=== PATIENT | male | born 1995 | race Caucasian/White ===

== ENCOUNTER 2017-12-10 20:08 | Emergency (ER) | payer OTHER ==
--- NOTE | 2017-12-10 20:44 | ED Physician Documentation ---
PD HPI ABD PAIN - Stated complaint Stated Complaint: ABD PX - Chief complaint Chief Complaint: Abd Pain - History obtained from History obtained from: Patient - History of Present Illness Timing - onset: How many hours ago (2 1/2), Today Timing - duration: Hours (2 1/2) Timing - details: Abrupt onset, Still present Quality: Cramping, Aching, Pain. No: Fullness/distended Location: All over / everywhere, Periumbilical (He states the pain started in the periumbilical area. He does have a prior umbilical hernia that has not bothered him. He will feel it protrude out at times after standing or going to the bathroom and he can easily push it in. Is not ever hurt him before. He had an abrupt onset of pain today without any particular injury or lifting event. On route here to the hospital he states he did push on the hernia and it "popped back in". However the pain persisted and presenting into the ER he is in considerable discomfort still.) Radiation: No: Chest, Lower back, Left flank, Right flank Worsened by: Breathing, Position (stretching out, he says it feels better walking bent and lying with knees up.), Palpation Associated symptoms: Nausea. No: Fever, Vomiting, Diarrhea, Dysuria, Chest pain, Loss of appetite Similar symptoms before: Has not had sx before Recently seen: Not recently seen Review of Systems Constitutional: denies: Fever, Chills Nose: denies: Rhinorrhea / runny nose, Congestion Throat: denies: Sore throat Respiratory: denies: Cough GI: reports: Abdominal Pain, Nausea. denies: Abdominal Swelling, Vomiting, Constipation, Diarrhea, Bloody / black stool : denies: Dysuria, Frequency, Hematuria PD PAST MEDICAL HISTORY - Past Medical History Past Medical History: No GI: Other (asymptomatic umbilical hernia) - Past Surgical History Past Surgical History: No - Present Medications Home Medications: Ambulatory Orders Medication Instructions Recorded Confirmed Docusate Sodium 100 mg PO DAILY #20 capsule 12/10/17 Naproxen [Naprosyn] 500 mg PO BID PRN #20 tablet 12/10/17 - Allergies Allergies/Adverse Reactions: Allergies Allergy/AdvReac Type Severity Reaction Status Date / Time No Known Drug Allergies Allergy Verified 12/10/17 20:17 - Social History Does the pt smoke?: Yes Smoking Status: Current every day smoker Does the pt drink ETOH?: Yes Does the pt have substance abuse?: No - Immunizations Immunizations are current?: Yes - POLST Patient has POLST: No PD ED PE NORMAL - Vitals Vital signs reviewed: Yes - General General: Alert and oriented X 3, Well developed/nourished, Other (appears in considerable pain and is walking hunched over. ) - HEENT HEENT: Pharynx benign - Neck Neck: Supple, no meningeal sign, No adenopathy - Cardiac Cardiac: RRR, No murmur - Respiratory Respiratory: Clear bilaterally - Abdomen Abdomen: Soft, Non distended, No organomegaly, Other (markedly tender periumbilical area without obvious hernia mass felt. Bowel sounds hyperactive. No distension. Some general tenderness is whole abd, with main focus/worst area being periumbilical. ) Results - Vitals Vitals: Vital Signs - 24 hr 12/10/17 20:13 Temperature 37 C Heart Rate 67 Respiratory 17 Rate Blood Pressure 132/93 H O2 Saturation 98 Oxygen O2 Source Room air - Labs Labs: Laboratory Tests 12/10/17 12/10/17 12/10/17 20:25 20:25 20:49 WBC 8.0 RBC 5.10 Hgb 15.3 Hct 43.9 MCV 86.1 MCH 30.0 MCHC 34.8 RDW 13.3 Plt Count 165 MPV 8.5 Neut # (Auto) 4.6 Lymph # (Auto) 2.6 [place] # (Auto) 0.6 Eos # (Auto) 0.2 Baso # (Auto) 0.0 Absolute Nucleated RBC 0.01 Nucleated RBC % 0.1 Sodium 138 Potassium 3.5 Chloride 99 L Carbon Dioxide 30 Anion Gap 9.0 BUN 16 Creatinine 1.1 Estimated GFR (MDRD) 85 L Glucose 90 Calcium 9.4 Total Bilirubin 1.0 AST 21 ALT 20 Alkaline Phosphatase 40 L Total Protein 7.8 Albumin 4.9 Globulin 2.9 Albumin/Globulin Ratio 1.7 Lipase 27 Urine Color YELLOW Urine Clarity CLEAR Urine pH 7.0 Ur Specific [place] 1.020 Urine Protein NEGATIVE Urine Glucose (UA) NEGATIVE Urine Ketones NEGATIVE Urine Occult Blood NEGATIVE Urine Nitrite NEGATIVE Urine Bilirubin NEGATIVE Urine Urobilinogen 0.2 (NORMAL) Ur Leukocyte Esterase NEGATIVE Ur Microscopic Review NOT INDICATED Urine Culture Comments NOT INDICATED - Rads (name of study) abd CT Radiology: Prelim report reviewed (no acute process per Radiologist. ), EMP read contemporaneously (I see some local mesenteric protrusion to umbilical area with surrounding mild inflammation. ) PD MEDICAL DECISION MAKING - ED course Complexity details: re-evaluated patient (He is feeling improved with pain medicines. His CT did show some mesenteric involvement in the subcutaneous area with some inflammation. There is no obvious bowel incarceration. There is no bowel obstruction pattern. No other acute explanation for the pain.He still is tender however and I would think you would be feeling better after the reduction of the hernia he had done prior to arrival. I had surgery come in to evaluate the patient as his degree of pain and tenderness does not quite fit for the course of it.), considered differential (The patient has symptoms and history to suggest a now incarcerated hernia. However he states that he had push the hernia back in prior to arrival at the ER yet still had considerable abdominal pain diffusely. On my initial exam he is diffusely tender but particularly the periumbilical area. I do not feel an obvious protruding hernia. We will get a CT scan to look for internal incarceration or bowel obstruction or other potential causes of the pain.), d/w patient, d/w networks software consultant (Surgery cardiology nurse practitioner, who came to see the patient. He felt the pain was from the inflammation in the area and there had been an incarceration which is now reduced. He offered to th e patient to have him in the hospital overnight and do hernia repair tomorrow. The patient opted for going home. If he has persistent pain or worsening again then he should return to the ER. Otherwise follow-up with surgery regarding subsequent hernia repair to reduce the chance of re-incarceration event.) Departure - Departure Disposition: 01 Home, Self Care Clinical Impression: Incarcerated umbilical hernia Abdominal pain Qualifiers: Abdominal location: generalized Qualified Code(s): R10.84 - Generalized abdominal pain Condition: Stable Record reviewed to determine appropriate education?: Yes Instructions: ED Hernia Inguinal Follow-Up: Vince Ray MD [Provider Admit Priv/Credential] - [facility]Provider Group] Prescriptions: Docusate Sodium 100 mg PO DAILY #20 capsule Naproxen [Naprosyn] 500 mg PO BID PRN #20 tablet PRN Reason: Pain Comments: No heavy lifting for the next few days. Drink lots of fluids and stay well- hydrated. Soft foods only for the next couple of days. Daily stool softener for the next several days to a week. Use naproxen anti-inflammatory twice daily for the next few days and then after that as needed for pain. Follow-up with surgery regarding having the hernia repaired. It does sound like the hernia was incarcerated which means trapped out and causing some blockage of the intestine and pain. It does seem to be unblocked and on trapped at this point and so the pain should improve overnight. However if it has done this once, it may happen again, and so having the hernia defect fixed can be appropriate to prevent that. Return if severe pain again such as you had this evening. Forms: Activity restrictions
[2017-12-10 20:46] LABS: ALBUMIN 4.9 g/dL (3.2-5.5); ALBUMIN/GLOBULIN RATIO 1.7 (1.0-2.2); CALCIUM 9.4 mg/dL (8.5-10.3); CREATININE 1.1 mg/dL (0.6-1.2); TOTAL PROTEIN 7.8 g/dL (6.7-8.2)
[2017-12-10 20:48] LABS: BASOPHILS % (AUTO) 0.3 %; EOSINOPHILS # (AUTO) 0.2 10^3/uL (0.0-0.7); EOSINOPHILS % (AUTO) 2.4 %; HGB - HEMOGLOBIN 15.3 g/dL (14.0-18.0); LYMPHOCYTES # (AUTO) 2.6 10^3/uL (1.5-3.5); LYMPHOCYTES % (AUTO) 32.1 %; MEAN CORPUSCULAR HGB CONC 34.8 g/dL (32.0-36.0); MEAN CORPUSCULAR VOLUME 86.1 fL (80.0-94.0); MEAN PLATELET VOLUME 8.5 fL (7.4-11.4); MONOCYTES # (AUTO) 0.6 10^3/uL (0.0-1.0); MONOCYTES % (AUTO) 7.3 %; NEUTROPHILS # (AUTO) 4.6 10^3/uL (1.5-6.6); NEUTROPHILS % (AUTO) 57.9 %; PLT - PLATELET COUNT 165 10^3/uL (130-450); RED CELL DISTRIBUTION WIDTH 13.3 % (12.0-15.0)
[2017-12-10] MEDS ORDERED: SODIUM CHLORIDE 0.9% 1,000 ML IV ONE (20:58)
[2017-12-10] MEDS ORDERED: ONDANSETRON 4 MG/2 ML VIAL IVP STA (20:59)
[2017-12-10] MEDS ORDERED: MORPHINE 10 MG/ML VIAL IVP STA (20:59)
[2017-12-10] MEDS ORDERED: KETOROLAC 15 MG/ML VIAL IVP STA (20:59)
[2017-12-10 21:02] LABS: BILIRUBIN,URINE NEGATIVE (NEGATIVE); GLUCOSE, URINE (UA) NEGATIVE (NEGATIVE); KETONES,URINE (UA) NEGATIVE (NEGATIVE); LEUKOCYTE ESTERASE, URINE NEGATIVE (NEGATIVE); NITRITE,URINE NEGATIVE (NEGATIVE); OCCULT BLOOD,URINE NEGATIVE (NEGATIVE); PROTEIN,URINE NEGATIVE (NEGATIVE); UROBILINOGEN,URINE 0.2 (NORMAL) E.U./dL (NORMAL)
[2017-12-10 21:11] LABS: CLARITY,URINE CLEAR (CLEAR)
[2017-12-10] MEDS ORDERED: IOPAMIDOL-300 100 ML VIAL ONE (21:20)
[2017-12-10] MEDS ORDERED: IOPAMIDOL-300 100 ML VIAL IVP ONE (21:53)
--- NOTE | 2017-12-10 22:07 | CT Report ---
Reason: mid abd pain today Procedure Date: 12/10/2017 Accession Number: [id number] / [id number] Procedure: CT - Abdomen/Pelvis W/ CPT Code: FULL RESULT: EXAM: CT ABDOMEN AND PELVIS EXAM DATE: 12/10/2017 09:51 PM. CLINICAL HISTORY: Mid abd pain today. COMPARISONS: None. TECHNIQUE: Routine helical CT imaging was performed through the abdomen and pelvis. IV contrast: 100 ML ISOVUE 300. Enteric contrast: No. Reconstructions: Coronal and sagittal. In accordance with CT protocol optimization, one or more of the following dose reduction techniques were utilized for this exam: automated exposure control, adjustment of mA and/or KV based on patient size, or use of iterative reconstructive technique. FINDINGS: ABDOMEN: Liver: No significant abnormality. Stomach/Distal Esophagus: No significant abnormality. Gallbladder: No significant abnormality. Bile Ducts: No significant abnormality. Pancreas: No significant abnormality. Spleen: No significant abnormality. Kidneys: No suspicious solid appearing lesion. No hydronephrosis. Adrenals: No significant abnormality. Bowel: No obstruction. Average fecal residual. Appendix: Normal. Lymph Nodes: No pathologically enlarged nodes. Vasculature: Normal caliber aorta. Fluid: No significant free fluid. Abdominal Wall: No significant abnormality. Other: No significant abnormality. PELVIS: Prostate and Seminal Vesicles: No significant abnormality. Bladder: No significant abnormality. Lymph Nodes: No pathologically enlarged nodes. Fluid: No significant free fluid. Other: None. BONES: No suspicious bony lesions. LOWER CHEST: No significant consolidation or effusion. IMPRESSION: No acute abdominal or pelvic abnormality. RADIA
[2017-12-10] MEDS ORDERED: HYDROcod/ACET 5/325 Prepack 4 PO STA (22:45)
[2017-12-10] MEDS ORDERED: ONDANSETRON ODT 4 MG Prepack 2 TL PRN (22:45)
--- NOTE | 2017-12-10 22:46 | CONSULTATION NOTE ---
Referring Provider Consult Date: 12/10/17 Chief Complaint - Chief Complaint Chief Complaint: abdominal pain History of Present Illness - History of Present Illness HPI Comment/Other: 22 yo man who had the acute onset of abdominal pain at 530 this evening with a bulge over the umbilicus. He has had this happen in the past, but normally the pain resolves with reduction. This time, the pain persisted even after reducing the hernia so he came to the ER. Currently, his pain is much improved. He reports no other symptoms other than pain. History - Past Medical History Respiratory: reports: None Neuro: reports: None Endocrine/Autoimmune: reports: None GI: reports: None : reports: None HEENT: reports: None Psych: reports: None Musculoskeletal: reports: None Derm: reports: None MRSA Hx?: No - POLST Patient has POLST: No Meds/Allgy - Home Medications Home Medications: Ambulatory Orders Medication Instructions Recorded Confirmed No Known Home Medications 12/10/17 12/10/17 - Allergies Allergies/Adverse Reactions: Allergies Allergy/AdvReac Type Severity Reaction Status Date / Time No Known Drug Allergies Allergy Verified 12/10/17 20:17 Review of Systems - Gastrointestinal Gastrointestinal: reports: Abdominal pain - All Other Systems All Other Systems: reports: Reviewed and negative Exam - Vital Signs Vital Signs: Vital Signs x48h Temp Pulse Resp BP Pulse Ox 12/10/17 20:13 37 C 67 17 132/93 H 98 - Physical Exam General Appearance: positive: No acute distress Eyes Bilateral: positive: Normal inspection ENT: positive: ENT inspection nml Neck: positive: Nml inspection Respiratory: positive: Chest non-tender Cardiovascular: positive: Regular rate & rhythm Abdomen: positive: Tenderness Back: positive: Nml inspection Skin: positive: Color nml Extremities: positive: Non-tender Neurologic/Psychiatric: positive: Oriented x3 Conclusion/Plan - Diagnosis Diagnosis: umbilical hernia - Plan Plan: Pt tender only to very deep palpation over the umbilicus at this point. No sign of peritonitis. His CT shows a small umbilical hernia with mild inflammation of omentum or preperitoneal fat underneath. It is reduced on CT and by exam. His pain is most likely due to a mild injury to that fat as there is no sign from history, exam, or CT of involvement of any other structure. I discussed with the pt his option of admitting him for urgent operative repair vs discharging him on pain medicine and following up in clinic for elective repair. He would like to follow up. He understands that he will need to return to the ER if his pain does not continue to improve. - Lab Results Fish Bones: 12/10/17 20:25 12/10/17 20:25
[2017-12-10] MEDS ORDERED: DOCUSATE SODIUM 100 MG CAPSULE PO STA (22:47)
[2017-12-10 23:03] VITALS: BP 130/68
== END 2017-12-10 23:03 | disposition home or self-care (01) ==
LOC: ED 20:08
DX: K42.9 Umbilical hernia without obstruction or gangrene (principal); R10.84 Generalized abdominal pain; F17.200 Nicotine dependence, unspecified, uncomplicated
CPT/HCPCS: 36415; 74177; 80053; 81003; 83690; 85025; 96361; 96374; 99283; 99284; A9270; Q9967; 81001; 87086